=== PATIENT | female | born 1955 | race Caucasian/White ===

== ENCOUNTER → 2020-09-22 10:53 | Outpatient (CLI) | payer OTHER, SELFPAY ==
--- NOTE | 2020-09-22 | CA_ITS ---
APPROVED REPORT Exam: Pharmacologic Technologist: Melanie Osullivan, Ht: 5 ft 4 in Wt: 250 lbs BSA: 2.15 m2 HR: 98 bpm BP: 115/73 mmHg Medical History Medications: Metoprolol,,,,, Metformin,,,,, Losartan,,,,, Hydrochlorothiazide,,,,, Citalopram,,,,, ViCtoza,,,,, CetIRIizine,,,,, Stress Test Details Test: LEXISCAN HR Resting HR: 60 bpm Max Heart Rate (APMHR): 157.325582 bpm Max HR Achieved: 115 bpm Target HR (85% APMHR): 133.462456 bpm % of APMHR: 73.25 Recovery HR: 103 bpm BP Resting BP: 115/73 mmHg Max BP: 146/71 mmHg Recovery BP: 146.0/71.0 mmHg ECG Resting ECG: SR with RBBB Clinical Exercise duration: 04:01 min Highest Stage Achieved: Stress ECG Conclusion Lexiscan portion completed. Pt c/o shortness of breath during peak infusion. Symptoms: No CP, (+)SOB during peak infusion. Resolved in recovery. Arrhythmias/Ectopy: Occ PVC. ST-T Changes: greater than 1.5mm ST Depression vs. artifact. Conclusion: Images to follow. Test Summary REST 02:04 . . 60 . 115/ 73 . . Stage 1 . . . . . . . Myoview Injected Stage 1 01:00 . . 65 . . . . Stage 2 01:00 . . 34 . . . . Stage 3 01:00 . . 97 . 145/ 96 . . Stage 4 01:00 . . 95 . 136/ 79 . . Stage 4 01:01 . . 99 . 136/ 79 . Stop exercise at 04:01 RECOVERY 01:00 . . 90 . 145/ 79 . . RECOVERY 02:00 . . 91 . 127/ 81 . . RECOVERY 03:00 . . 85 . 127/ 81 . . RECOVERY 03:31 . . 82 . 146/ 71 . . Electronically signed by : Luisito Brady, 09/22/2020 19:31:50
--- NOTE | 2020-09-22 10:58 | NM_ITS ---
APPROVED REPORT Exam: Nuclear Stress Test Indication: Chest pain, SOB, Fatigue, HTN, DM, Family history Patient Location: Outpatient Stress Tech: Melanie Osullivan [place] Tech:Anat Garcia, ARRT, RT (R)(N) Ht: 5 ft 4 in Wt: 254 lbs Bra Size: 42D HR: 98 bpm BP: 115/73 mmHg BSA: 2.17 m2 BMI: 43.5 Procedure: Patient received a 0.4 mg of intravenous Lexiscan, resting heart rate 98 bpm, resting blood pressure 115/73 mmHg, with Lexiscan maximum heart rate achived was 113 bpm which is Less than 85 % of the maximum predicted heart rate and blood pressure was 145/96 mmHg. With Lexiscan, patient denied any complaint of chest pain. Electrocardiogram Resting electrocardiogram shows sinus rhythm low voltage QRS complexes, with Lexiscan there is less than 1.[address] segment depression noted from the baseline EKG. The EKG portion of the Lexiscan is nondiagnostic. Cardiac Stress and Resting SPECT Images: Cardiac Stress and Resting SPECT images were obtained using technetium 99m Myoview 32.6 mCi stress and 10.74 mCi at rest. Gated SPECT for analysis of segmental wall motion and calculation of the ejection fraction also done, prone images were also obtained. Cardiac stress and resting SPECT images show reversible ischemia involving the anterolateral wall, there is transient ischemic dilatation of the left ventricle is also seen. Computer derived ejection fraction is 56% with no regional wall motion abnormality, right ventricle is normal size and contractility. Conclusion: 1. The EKG portion of the Lexiscan is nondiagnostic. 2. Scintigraphic evidence of reversible ischemia involving the anterolateral wall, computer derived ejection fraction 56% with no regional wall motion abnormality, right ventricle is normal size and contractility, there is transient ischemic dilatation of the left ventricle seen. 3. Abnormal Lexiscan Myoview study. Electronically signed by : Luisito Brady, 09/22/2020 19:37:11
--- NOTE | 2020-09-22 12:53 | HMH.ITSHM ---
Current Home Medications as stated by this patient Kenya Sales or ambulatory service representative. []METOPROLOL HCTZ CETIRIZINE LOSARTAN METFORMIN CITALOPRAM VICTOZA
== END ==
PROVIDERS: PCP Family Medicine; Visit Provider Nurse Practitioner
DX: R07.9 Chest pain, unspecified (principal)
CPT/HCPCS: 78452; 93017; A9502; J2785

== ENCOUNTER → 2020-10-10 09:40 | Outpatient (CLI) | payer OTHER, SELFPAY | PROVIDERS: PCP Family Medicine; Visit Provider Nurse Practitioner | DX: R06.02 Shortness of breath (principal) | CPT/HCPCS: 94060; 94640; 94726; 94729 ==

== ENCOUNTER → 2020-11-08 10:32 | Outpatient (CLI) | payer OTHER, SELFPAY ==
[2020-11-08 11:05] LABS: Basophils # 0.1 K/mm3 (0-0.2); Basophils % 1.2 % (0.1-2.0); Eosinophils # 0.1 K/mm3 (0.0-0.4); Eosinophils % 1.6 % (0.1-12.0); Hematocrit 42.2 % (37.0-47.0); Hemoglobin 13.6 g/dL (12.2-16.2); Lymphocytes # 1.9 K/mm3 (0.7-4.5); Mean Corpuscular HGB Conc 32.1 g/dL (31.8-35.4); Mean Corpuscular Hemoglobin 30.4 pg (27.0-31.2); Mean Corpuscular Volume 94.5 fl (81-99); Mean Platelet Volume 7.9 fl (7.4-10.4); Monocytes # 0.6 K/mm3 (0.1-1.0); Monocytes % 7.8 % (1.7-9.3); Neutrophils # 5.1 K/mm3 (1.8-7.8); Neutrophils % 65.4 % (37.0-80.0); Platelet Count 462 K/mm3 (142-424); Red Blood Count 4.47 M/mm3 (4.20-5.40); White Blood Count 7.9 K/mm3 (4.8-10.8)
[2020-11-08 11:27] LABS: Chloride 103 mmol/L (98-107)
[2020-11-08 11:28] LABS: Potassium 5.3 mmoL/L (3.5-5.1); Sodium 143 mmol/L (136-145)
[2020-11-08 11:31] LABS: Anion Gap 17.3 mEq/L (5-15); Blood Urea Nitrogen 16 mg/dl (7-17); Calcium 10.1 mg/dl (8.4-10.2); Carbon Dioxide 28 mmol/L (22.0-30.0); Estimated Glomerular Filt Rate 63 ml/min (>60); GFR (African American) 77 ML/MIN (>60); Glucose 155 mg/dl (74-100)
== END ==
PROVIDERS: Visit Provider Urology
DX: Z01.812 Encounter for preprocedural laboratory examination (principal); Z20.822 Contact with and (suspected) exposure to COVID-19; R06.00 Dyspnea, unspecified; R00.2 Palpitations; R00.0 Tachycardia, unspecified; I20.9 Angina pectoris, unspecified; E78.5 Hyperlipidemia, unspecified; I10 Essential (primary) hypertension; R94.30 Abnormal result of cardiovascular function study, unspecified; R94.39 Abnormal result of other cardiovascular function study
CPT/HCPCS: 36415; 80048; 85025; U0003

== ENCOUNTER 2020-11-10 06:48 | Day surgery (SDC) | payer OTHER, SELFPAY ==
[2020-11-10] VITALS (11 sets, daily range): BP systolic 109–168; BP diastolic 64–94; PULSE 90–108; RESP 13–18; TEMP 36.7–36.9; O2SAT 92–99; BMI 45.1
--- NOTE | 2020-11-10 | IR_ITS ---
APPROVED REPORT Patient Location: Outpatient Outside Industrial Sales Representative: RODDY Santos RT (R) PROCEDURES Left heart catheterization Left ventriculogram Selective coronary angiogram Drug-eluting stent deployment to the ostial proximal LAD Drug-eluting stent deployment to the proximal circumflex artery INDICATION Angina pectoris class III-IV, High risk abnormal Myoview, Coronary artery disease Informed consent was obtained prior to the procedure. COMPLICATIONS NONE Estimated Blood Loss: LESS THAN 10 ML TECHNIQUE One percent lidocaine used to anesthetize the right anterior aspect of the wrist. The right radial artery was accessed via the Seldinger technique. A 6 Burmese sheath was placed in the right radial artery. 2.5 mg of verapamil, 800 mcg of nitroglycerin, 1mg Lidocaine and 5000 U Heparin were given through the arterial sheath. The trap catheter was also used to perform left heart catheterization, left ventriculogram and selective coronary angiogram. At the end the diagnostic angiogram therapeutic heparin was administered giving a therapeutic ACT and the JL 3 guide catheter was used to intubate the left main artery. Choice PT extra-support wire was placed distally in the LAD and a 3.5 x 15 mm resolute [place] stent was placed ostially in the LAD at 18 dmitriy reducing the stenosis to less than 10%. After achieving excellent angiographic results the wire was pulled back and easily passed into the circumflex artery. A 3 mm x 15 mm resolute [place] stent easily passed into the circumflex artery and was deployed at 20 dmitriy reducing the focal stenosis to 0%. Labetalol was given intra venously due to elevated blood pressure. 800 mcg of nitroglycerin was administered at the end of the case which demonstrated wide patency of the stents with excellent ROXIE-3 flow. After achieving excellent angiographic results the apparatus was removed the sheath was removed hemostasis was achieved using TR banding patient was transferred to the postop putting in stable condition ANGIOGRAPHIC RESULTS The left main artery Normal The left anterior descending artery Has an ostial proximal 70 to 80% stenosis with remaining vessel being widely patent and essentially normal The circumflex artery Is a nondominant yet still moderate to large circumflex artery and has a focal proximal 70 to 80% stenosis The right coronary artery Is a dominant vessel and has proximal 40% stenosis with mid vessel 30% luminal irregularities The MURPHY ventriculogram reveals Hyperdynamic 70% The left ventricular end-diastolic pressure Severely elevated at 35 to 40 mmHg IMPRESSION Severe two-vessel coronary disease as described above Successful stenting of the ostial proximal LAD severe disease reduced to 10% with 1 drug-eluting stent Successful stenting of the proximal circumflex artery severe disease reduced to 0% with 1 drug-eluting stent Hyperdynamic ventricle consistent with hypertensive heart disease and diastolic dysfunction Elevated LVEDP also consistent with advanced diastolic dysfunction likely from hypertensive heart disease PLAN 1. Brilinta 90 twice daily plus aspirin 81 mg daily for 1 year if patient can tolerate 2. LDL less than 55 to be achieved with high intensity statin 3. Cardiac rehabilitation 4. Avoidance of tobacco products 5. Recommend sleep study 6. Weight loss recommended 7. Patient has advanced diastolic dysfunction and should be treated with fluid restriction salt restriction and loop diuretics along with spironolactone 8. Beta-blockers and CAL inhibitors Electronically signed by : Alf Brooks, 11/10/2020 10:56:23
[2020-11-10 11:49] LABS: CATHL Activated Clotting Time 253 SEC (74-125)
[2020-11-10 11:50] LABS: CATHL Activated Clotting Time 248 SEC (74-125)
--- NOTE | 2020-11-10 14:13 | HMH.PHACLD ---
Addendum entered and electronically signed by Patricio Joe PharmD 11/10/20 14:17: CHANGING BRILINTA 90 MG BID TO PLAVIX 75 MG DAILY DUE TO SHORTNESS OF BREATH. Original Note: Kenya Sales has received discharge medication counseling on the following medications: PATIENT STARTED ON BRILINTA 90 MG BID, ASPIRIN 81 MG DAILY, AND ATORVASTATIN 40 MG HS. PATIENT IS CURRENTLY TAKING BISOPROLOL 10 MG DAILY AND MD INCREASED DOSE OF LOSARTAN TO 100 MG DAILY. MD STARTED PATIENT ON LASIX 40 MG DAILY AND SPIRONOLACTONE 50 MG DAILY.
== END 2020-11-10 14:30 | disposition home or self-care (01) ==
LOC: CATHLAB 06:50
PROVIDERS: PCP Family Medicine; Visit Provider Internal Medicine
DX: I25.110 Atherosclerotic heart disease of native coronary artery with unstable angina pectoris (principal); I11.9 Hypertensive heart disease without heart failure; E11.9 Type 2 diabetes mellitus without complications; E78.5 Hyperlipidemia, unspecified; Z79.899 Other long term (current) drug therapy; Z79.84 Long term (current) use of oral hypoglycemic drugs; Z79.01 Long term (current) use of anticoagulants
CPT/HCPCS: 85347; 92928; 93458; 99152; 99153; C1725; C1760; C1769; C1874; C1876; C9600; J1644; Q9967

== ENCOUNTER → 2020-11-18 16:13 | Outpatient (CLI) | payer OTHER, SELFPAY ==
[2020-11-18 18:47] LABS: Anion Gap 21.1 mEq/L (5-15); Blood Urea Nitrogen 19 mg/dl (7-17); Carbon Dioxide 27 mmol/L (22.0-30.0); Chloride 100 mmol/L (98-107); Estimated Glomerular Filt Rate 56 ml/min (>60); GFR (African American) 68 ML/MIN (>60); Glucose 141 mg/dl (74-100); Potassium 5.1 mmoL/L (3.5-5.1); Sodium 143 mmol/L (136-145)
== END ==
PROVIDERS: Nurse Practitioner Family; Visit Provider Urology
DX: R00.2 Palpitations (principal); R00.0 Tachycardia, unspecified; I25.10 Atherosclerotic heart disease of native coronary artery without angina pectoris; I10 Essential (primary) hypertension; E78.2 Mixed hyperlipidemia
CPT/HCPCS: 36415; 80048

== ENCOUNTER 2020-11-26 08:41 | Outpatient (RCR) | payer OTHER, SELFPAY | END 2021-02-18 10:34 | disposition home or self-care (01) | LOC: PT 08:41 | PROVIDERS: Visit Provider Internal Medicine | DX: I25.10 Atherosclerotic heart disease of native coronary artery without angina pectoris (principal); Z95.5 Presence of coronary angioplasty implant and graft ==

== ENCOUNTER → 2020-12-08 07:55 | Outpatient (CLI) | payer OTHER, SELFPAY ==
[2020-12-08 08:38] LABS: Chloride 99 mmol/L (98-107); Potassium 5.2 mmoL/L (3.5-5.1); Sodium 141 mmol/L (136-145)
[2020-12-08 08:41] LABS: Blood Urea Nitrogen 26 mg/dl (7-17); Estimated Glomerular Filt Rate 41 ml/min (>60); GFR (African American) 50 ML/MIN (>60)
[2020-12-08 08:42] LABS: Anion Gap 21.2 mEq/L (5-15); Calcium 9.5 mg/dl (8.4-10.2); Carbon Dioxide 26 mmol/L (22.0-30.0); Glucose 194 mg/dl (74-100)
== END ==
PROVIDERS: Urology; Visit Provider Nurse Practitioner Family
DX: R06.00 Dyspnea, unspecified (principal); R94.39 Abnormal result of other cardiovascular function study; I10 Essential (primary) hypertension; E78.5 Hyperlipidemia, unspecified
CPT/HCPCS: 36415; 80048

== ENCOUNTER → 2020-12-09 11:03 | Outpatient (CLI) | payer OTHER, SELFPAY ==
[2020-12-09 12:04] LABS: Anion Gap 20.7 mEq/L (5-15); Blood Urea Nitrogen 25 mg/dl (7-17); Calcium 10.2 mg/dl (8.4-10.2); Carbon Dioxide 28 mmol/L (22.0-30.0); Chloride 97 mmol/L (98-107); Estimated Glomerular Filt Rate 50 ml/min (>60); GFR (African American) 61 ML/MIN (>60); Glucose 231 mg/dl (74-100); Potassium 5.7 mmoL/L (3.5-5.1); Sodium 140 mmol/L (136-145)
== END ==
PROVIDERS: Visit Provider Urology
DX: E87.5 Hyperkalemia (principal)
CPT/HCPCS: 36415; 80048

== ENCOUNTER → 2020-12-13 12:33 | Outpatient (CLI) | payer OTHER, SELFPAY ==
[2020-12-13 14:05] LABS: Blood Urea Nitrogen 40 mg/dl (7-17); Carbon Dioxide 23 mmol/L (22.0-30.0); Chloride 97 mmol/L (98-107); Estimated Glomerular Filt Rate 30 ml/min (>60); GFR (African American) 37 ML/MIN (>60); Glucose 183 mg/dl (74-100); Sodium 141 mmol/L (136-145)
== END ==
PROVIDERS: Urology; Visit Provider Internal Medicine
DX: R06.00 Dyspnea, unspecified (principal); I20.9 Angina pectoris, unspecified; R00.0 Tachycardia, unspecified; I10 Essential (primary) hypertension; E78.5 Hyperlipidemia, unspecified; R94.31 Abnormal electrocardiogram [ECG] [EKG]; R94.39 Abnormal result of other cardiovascular function study; Z95.1 Presence of aortocoronary bypass graft
CPT/HCPCS: 36415; 80048

== ENCOUNTER → 2021-03-10 08:58 | Outpatient (CLI) | payer OTHER, SELFPAY ==
[2021-03-10 09:31] LABS: Basophils # 0.1 K/mm3 (0-0.2); Eosinophils # 0.1 K/mm3 (0.0-0.4); Hematocrit 41.2 % (37.0-47.0); Hemoglobin 13.3 g/dL (12.2-16.2); Lymphocytes # 1.5 K/mm3 (0.7-4.5); Lymphocytes % 22.2 % (10-50); Mean Corpuscular HGB Conc 32.3 g/dL (31.8-35.4); Mean Corpuscular Hemoglobin 30.3 pg (27.0-31.2); Mean Corpuscular Volume 93.7 fl (81-99); Monocytes # 0.5 K/mm3 (0.1-1.0); Monocytes % 6.9 % (1.7-9.3); Neutrophils # 4.6 K/mm3 (1.8-7.8); Neutrophils % 67.8 % (37.0-80.0); Platelet Count 520 K/mm3 (142-424); Red Cell Distribution Width 13.3 % (11.5-17.5); White Blood Count 6.8 K/mm3 (4.8-10.8)
[2021-03-10 10:11] LABS: Alanine Aminotransferase 43 U/L (12-78); Albumin Level 4.1 g/dl (3.5-5.0); Alkaline Phosphatase 94 U/L (38-126); Aspartate Amino Transferase 50 U/L (14-36); Bilirubin,Direct 0.2 mg/dl (0.0-0.4); Bilirubin,Indirect 0.2 mg/dL (0.0-0.9); Bilirubin,Total 0.4 mg/dl (0.2-1.3); Bilirubin,Unconjugated 0.1 mg/dL (0.0-1.1); Blood Urea Nitrogen 12 mg/dl (7-17); Calcium 10.6 mg/dl (8.4-10.2); Carbon Dioxide 31 mmol/L (22.0-30.0); Chloride 99 mmol/L (98-107); Chol/HDL Ratio 3.8 (1-3.5); Cholesterol 144 mg/dl (140-200); Estimated Glomerular Filt Rate 56 ml/min (>60); GFR (African American) 68 ML/MIN (>60); Glucose 171 mg/dl (74-100); HDL Cholesterol 38 mg/dl (40-60); Sodium 139 mmol/L (136-145); Total Protein,Serum 6.8 g/dl (6.3-8.2); Triglycerides 167 mg/dl (30-150); VLDL Cholesterol 33 mg/dL (0-40)
[2021-03-10 10:22] LABS: Direct LDL Cholesterol 90.96 mg/dL (100-129)
[2021-03-10 10:27] LABS: Free T4 (Free Thyroxine) 1.19 ng/dl (0.78-2.19)
[2021-03-10 12:40] LABS: Thyroid Stimulating Hormone 2.23 uIU/mL (0.465-4.68)
== END ==
PROVIDERS: Visit Provider Physician Assistant
DX: I25.10 Atherosclerotic heart disease of native coronary artery without angina pectoris (principal); I10 Essential (primary) hypertension; E78.5 Hyperlipidemia, unspecified; R94.31 Abnormal electrocardiogram [ECG] [EKG]; Z95.1 Presence of aortocoronary bypass graft
CPT/HCPCS: 36415; 80048; 80061; 80076; 84439; 84443; 85025

== ENCOUNTER → 2021-03-18 12:55 | Outpatient (CLI) | payer OTHER, SELFPAY | PROVIDERS: PCP Family Medicine; Visit Provider Physician Assistant | DX: R06.83 Snoring (principal); R40.0 Somnolence | CPT/HCPCS: 95806 ==

== ENCOUNTER → 2021-12-30 07:10 | Outpatient (CLI) | payer OTHER, SELFPAY ==
[2021-12-30 17:52] LABS: Basophils # 0.2 K/mm3 (0-0.2); Eosinophils # 0.2 K/mm3 (0.0-0.4); Eosinophils % 2.1 % (0.1-12.0); Hematocrit 42.1 % (37.0-47.0); Hemoglobin 12.9 g/dL (12.2-16.2); Lymphocytes # 1.6 K/mm3 (0.7-4.5); Lymphocytes % 21.9 % (10-50); Mean Corpuscular HGB Conc 30.7 g/dL (31.8-35.4); Mean Corpuscular Hemoglobin 29.3 pg (27.0-31.2); Mean Corpuscular Volume 95.4 fl (81-99); Mean Platelet Volume 9.7 fl (7.4-10.4); Monocytes # 0.5 K/mm3 (0.1-1.0); Monocytes % 6.2 % (1.7-9.3); Neutrophils # 5.1 K/mm3 (1.8-7.8); Neutrophils % 67.9 % (37.0-80.0); Platelet Count 635 K/mm3 (142-424); Red Blood Count 4.41 M/mm3 (4.20-5.40); Red Cell Distribution Width 13.9 % (11.5-17.5); White Blood Count 7.4 K/mm3 (4.8-10.8)
[2021-12-30 17:57] LABS: Alanine Aminotransferase 37 U/L (12-78); Albumin Level 3.7 g/dl (3.5-5.0); Albumin/Globulin Ratio 1.3 (1.1-1.8); Alkaline Phosphatase 131 U/L (38-126); Anion Gap 17.6 mEq/L (5-15); Aspartate Amino Transferase 39 U/L (14-36); Blood Urea Nitrogen 16 mg/dl (7-17); Carbon Dioxide 27 mmol/L (22.0-30.0); Chloride 97 mmol/L (98-107); Cholesterol 128 mg/dl (140-200); Estimated Glomerular Filt Rate 56 ml/min (>60); GFR (African American) 68 ML/MIN (>60); Globulin 2.9 g/dL (1.3-3.2); Glucose 180 mg/dl (74-100); HDL Cholesterol 32 mg/dl (40-60); Potassium 4.6 mmoL/L (3.5-5.1); Sodium 137 mmol/L (136-145); Total Protein,Serum 6.6 g/dl (6.3-8.2); Triglycerides 189 mg/dl (30-150); VLDL Cholesterol 38 mg/dL (0-40)
[2021-12-30 18:07] LABS: Direct LDL Cholesterol 76.42 mg/dL (100-129)
[2021-12-30 18:08] LABS: Bilirubin,Total 0.1 mg/dl (0.2-1.3)
[2021-12-30 18:14] LABS: 25-OH Vitamin D, Total 40.5 ng/mL (30-100)
[2021-12-30 18:27] LABS: Thyroid Stimulating Hormone 2.15 uIU/mL (0.465-4.68)
[2021-12-30 18:47] LABS: Vitamin B12 885 pg/mL (239-931)
== END ==
PROVIDERS: PCP Nurse Practitioner; Visit Provider Nurse Practitioner
DX: I25.10 Atherosclerotic heart disease of native coronary artery without angina pectoris (principal); I10 Essential (primary) hypertension; E53.8 Deficiency of other specified B group vitamins; E78.5 Hyperlipidemia, unspecified; E66.01 Morbid (severe) obesity due to excess calories; Z68.41 Body mass index [BMI] 40.0-44.9, adult
CPT/HCPCS: 80053; 80061; 82306; 82607; 83036; 84443; 85025

== ENCOUNTER → 2021-12-31 14:29 | Outpatient (CLI) | payer OTHER, SELFPAY | PROVIDERS: PCP Nurse Practitioner; Visit Provider Nurse Practitioner | DX: E11.9 Type 2 diabetes mellitus without complications (principal); Z79.84 Long term (current) use of oral hypoglycemic drugs | CPT/HCPCS: 83036 ==

== ENCOUNTER → 2022-01-11 10:26 | Outpatient (CLI) | payer OTHER, SELFPAY ==
--- NOTE | 2022-01-11 10:37 | XR_ITS ---
FINAL REPORT CLINICAL HISTORY: OBESITY, SHORTNESS OF BREATH, CHEST PAIN FINDINGS: Two views of the chest were obtained. The heart size and pulmonary vascularity are within normal limits. The mediastinum is normal. No acute pulmonary abnormality is identified. The lungs are hyperinflated consistent with COPD. There is no pneumothorax. The bony thorax is intact. IMPRESSION: Hyperinflation consistent with COPD. Reviewed, Interpreted and Dictated by Heladio Monaco III, MD Transcribed by Melita Evans Authenticated and [facility]
--- NOTE | 2022-01-11 10:53 | ECG_ITS ---
APPROVED REPORT Exam: Resting ECG HR:77 bpm ECG Measurements Heart Rate 77 AXES WA 145 P 51 QRSd 82 QRS 62 QT 349 T 59 QTc 381 Conclusion SINUS RHYTHM LOW QRS VOLTAGE IN PRECORDIAL LEADS [QRS DEFLECTION < 1.0 mV IN CHEST LEADS] Late R wave progression BORDERLINE ECG UNCONFIRMED REPORT Electronically signed by : Endy Aaron MD 01/11/2022 20:05:41
== END ==
PROVIDERS: PCP Nurse Practitioner; Visit Provider Physician Assistant
DX: E66.9 Obesity, unspecified (principal); Z68.41 Body mass index [BMI] 40.0-44.9, adult
CPT/HCPCS: 71046; 93005

== ENCOUNTER → 2022-02-25 08:55 | Outpatient (CLI) | payer MEDICARE, SELFPAY ==
[2022-02-25 19:08] LABS: Anion Gap 16.9 mEq/L (5-15); Blood Urea Nitrogen 14 mg/dl (7-17); Calcium 9.5 mg/dl (8.4-10.2); Carbon Dioxide 33 mmol/L (22.0-30.0); Chloride 96 mmol/L (98-107); Estimated Glomerular Filt Rate 45 ml/min (>60); GFR (African American) 55 ML/MIN (>60); Glucose 146 mg/dl (74-100); Potassium 4.9 mmoL/L (3.5-5.1); Sodium 141 mmol/L (136-145)
== END ==
PROVIDERS: PCP Nurse Practitioner; Visit Provider Nurse Practitioner
DX: E11.9 Type 2 diabetes mellitus without complications (principal); Z79.84 Long term (current) use of oral hypoglycemic drugs
CPT/HCPCS: 80048

== ENCOUNTER → 2022-05-10 14:10 | Outpatient (CLI) | payer MEDICARE, OTHER, SELFPAY ==
[2022-05-10 19:32] LABS: Basophils # 0.1 K/mm3 (0-0.2); Basophils % 0.9 % (0.1-2.0); Eosinophils # 0.1 K/mm3 (0.0-0.4); Eosinophils % 1.1 % (0.1-12.0); Hematocrit 42.8 % (37.0-47.0); Hemoglobin 13.8 g/dL (12.2-16.2); Lymphocytes # 1.9 K/mm3 (0.7-4.5); Mean Corpuscular HGB Conc 32.4 g/dL (31.8-35.4); Mean Corpuscular Hemoglobin 29.5 pg (27.0-31.2); Mean Corpuscular Volume 91.1 fl (81-99); Mean Platelet Volume 8.6 fl (7.4-10.4); Monocytes # 0.6 K/mm3 (0.1-1.0); Monocytes % 6.5 % (1.7-9.3); Neutrophils # 6.7 K/mm3 (1.8-7.8); Neutrophils % 71.4 % (37.0-80.0); Platelet Count 667 K/mm3 (142-424); Red Blood Count 4.69 M/mm3 (4.20-5.40); Red Cell Distribution Width 14.3 % (11.5-17.5); White Blood Count 9.4 K/mm3 (4.8-10.8)
[2022-05-10 19:34] LABS: Alanine Aminotransferase 26 U/L (12-78); Albumin Level 3.4 g/dl (3.5-5.0); Albumin/Globulin Ratio 1.3 (1.1-1.8); Alkaline Phosphatase 102 U/L (38-126); Anion Gap 13.7 mEq/L (5-15); Aspartate Amino Transferase 40 U/L (14-36); Bilirubin,Total 0.4 mg/dl (0.2-1.3); Blood Urea Nitrogen 16 mg/dl (7-17); Calcium 8.6 mg/dl (8.4-10.2); Carbon Dioxide 25 mmol/L (22.0-30.0); Chloride 103 mmol/L (98-107); Chol/HDL Ratio 2.2 (1-3.5); Cholesterol 98 mg/dl (140-200); Estimated Glomerular Filt Rate 27 ml/min (>60); GFR (African American) 32 ML/MIN (>60); Globulin 2.6 g/dL (1.3-3.2); Glucose 144 mg/dl (74-100); HDL Cholesterol 44 mg/dl (40-60); Sodium 139 mmol/L (136-145); Triglycerides 163 mg/dl (30-150); VLDL Cholesterol 33 mg/dL (0-40)
[2022-05-10 19:45] LABS: Direct LDL Cholesterol 46.88 mg/dL (100-129)
[2022-05-10 19:49] LABS: Potassium 2.7 mmoL/L (3.5-5.1)
[2022-05-10 19:51] LABS: 25-OH Vitamin D, Total 40.5 ng/mL (30-100)
[2022-05-10 20:04] LABS: Thyroid Stimulating Hormone 1.34 uIU/mL (0.465-4.68)
[2022-05-10 20:18] LABS: Hemoglobin A1C 5.9 % (4.0-6.0)
[2022-05-10 20:23] LABS: Vitamin B12 > 1000 pg/mL (239-931)
== END ==
PROVIDERS: PCP Nurse Practitioner; Visit Provider Nurse Practitioner
DX: R06.00 Dyspnea, unspecified; R42 Dizziness and giddiness; E11.9 Type 2 diabetes mellitus without complications; E55.9 Vitamin D deficiency, unspecified; Z79.84 Long term (current) use of oral hypoglycemic drugs
CPT/HCPCS: 80053; 80061; 82306; 82607; 83036; 84443; 85025

== ENCOUNTER → 2022-05-13 09:42 | Outpatient (CLI) | payer MEDICARE, OTHER, SELFPAY ==
[2022-05-13 20:02] LABS: Blood Urea Nitrogen 18 mg/dl (7-17); Calcium 8.2 mg/dl (8.4-10.2); Carbon Dioxide 25 mmol/L (22.0-30.0); Chloride 102 mmol/L (98-107); Estimated Glomerular Filt Rate 32 ml/min (>60); GFR (African American) 39 ML/MIN (>60); Glucose 99 mg/dl (74-100); Sodium 140 mmol/L (136-145)
== END ==
PROVIDERS: PCP Nurse Practitioner; Visit Provider Nurse Practitioner
DX: E11.9 Type 2 diabetes mellitus without complications (principal); E87.6 Hypokalemia; I10 Essential (primary) hypertension; Z79.84 Long term (current) use of oral hypoglycemic drugs
CPT/HCPCS: 80048

== ENCOUNTER 2022-05-17 15:58 | Emergency (ER) | payer MEDICARE, OTHER, SELFPAY ==
[2022-05-17 15:59] VITALS: BP 137/56; PULSE 68; RESP 17; TEMP 36.5; O2SAT 98; BMI 35.0
--- NOTE | 2022-05-17 16:02 | HMH.EDGENADL ---
Discharge Plan Disposition Patient Disposition: Home, Self-Care Condition: Good Prescriptions Prescriptions: No Action gabapentin 300 mg capsule 300 mg PO TID Label Comments: TAKE 1 CAPSULE BY MOUTH 3 TIMES A DAY FOR 7 DAYS. metformin 500 mg tablet extended release 24 hr 500 mg PO BID Qty: 90 1RF polyethylene glycol 3350 17 gram/dose powder 17 g PO DAILY Qty: 850 2RF docusate sodium 100 mg capsule 100 mg PO DAILY Qty: 30 0RF ondansetron 4 mg tablet,disintegrating 4 mg PO Q8H PRN (Reason: nausea and vomiting) Qty: 30 0RF bisoprolol fumarate 10 mg tablet 5 mg PO BID Qty: 180 3RF losartan 100 mg tablet 50 mg PO DAILY fluticasone propionate [Allergy Relief (fluticasone)] 50 mcg/actuation spray,suspension 1 spray INTRANASAL DAILY 90 Days Qty: 48 3RF Rx Instructions: administer into each nostril aspirin 81 mg tablet,delayed release (DR/EC) See Rx Instructions .ROUTE .COMPLEX Qty: 90 3RF Dose Instruction: TAKE ONE TABLET BY MOUTH EVERY MORNING Rx Instructions: TAKE ONE TABLET BY MOUTH EVERY MORNING albuterol sulfate [Ventolin HFA] 90 mcg/actuation HFA aerosol inhaler 2 puff INHALATION QID PRN (Reason: shortness of breath or wheezing) Qty: 6.7 5RF furosemide 80 mg tablet 40 mg PO .M, W, F Qty: 30 5RF Rx Instructions: 0.5 tablet M, W, F cetirizine 10 mg tablet 10 mg PO DAILY Qty: 30 2RF duloxetine 60 mg capsule,delayed release(DR/EC) 60 mg PO DAILY Qty: 30 0RF clopidogrel 75 mg tablet 75 mg PO DAILY Qty: 90 3RF atorvastatin 40 mg tablet 20 mg PO HS Qty: 30 5RF potassium chloride 20 mEq tablet extended release 20 meq PO DAILY Qty: 30 2RF cyanocobalamin (vitamin B-12) 1,000 mcg tablet 1,000 mcg PO DAILY Qty: 30 3RF Referrals Follow up/Referrals: Serjio Vera MD [Primary Care Provider] - See instructions Activity Restrictions/Add. Instructions Additional Instructions/Restrictions: You have a spontaneous lateral thigh soft tissue hematomas. Bedside ultrasound demonstrated fluid in the soft tissues alone outside of any vasculature. There is no evidence of any DVT or any intravascular involvement. This is nothing to be concerned about. Please follow-up with your primary care doctor as needed return to the emergency department for any other concerns. Clinical Impressions Clinical Impression: Hematoma of left thigh Discharge ED Provider: Boris Richard General Adult HPI General Chief complaint: Extremity Problem,Nontraumatic Stated complaint: left leg pain/swelling Time Seen by Provider: 05/17/22 16:03 History of Present Illness HPI narrative: Patient is a 67-year-old female who presents with left lateral leg pain and swelling. States that she was not concerned about this however had a few people over her house who noted some ecchymosis on the lateral aspect of her left thigh and they were concerned that she may have a blood clot. Patient has no proximal or medial leg swelling or pain there is no circumferential swelling throughout the leg. Her only discomfort are 2 small ecchymotic areas on the left lateral aspect of her thigh. She denies any trauma. She does have other areas on her body where she has had some spontaneous ecchymosis. She is on aspirin but no other anticoagulants. Pain is mild. Related Data Home Medications Medication Instructions Recorded Confirmed gabapentin 300 mg capsule 300 mg PO TID 03/25/22 05/13/22 losartan 100 mg tablet 50 mg PO DAILY 05/13/22 05/13/22 Previous Rx's Medication Instructions Recorded fluticasone propionate 50 1 spray intranasal DAILY 90 days 10/22/21 mcg/actuation nasal #48 grams spray,suspension (Allergy Relief (fluticasone)) albuterol sulfate 90 mcg/actuation 2 puff inhalation QID PRN 01/27/22 aerosol inhaler (Ventolin HFA) shortness of breath or wheezing #6.7 grams aspirin 81 mg tablet,delayed See Rx Instructions .Route
--- NOTE | 2022-05-17 16:06 | PC.NURSE ---
1603 DR CHAPMAN AT BEDSIDE
[2022-05-17 16:23] VITALS: BP 137/56; PULSE 73; RESP 18; TEMP 36.6
== END 2022-05-17 16:26 | disposition home or self-care (01) ==
LOC: ER 16:21
PROVIDERS: Emergency Provider Student in an Organized Health Care Education/Training Program; PCP Family Medicine
DX: S70.12XA Contusion of left thigh, initial encounter (principal); X58.XXXA Exposure to other specified factors, initial encounter; Z86.79 Personal history of other diseases of the circulatory system; I25.10 Atherosclerotic heart disease of native coronary artery without angina pectoris; I10 Essential (primary) hypertension; E11.9 Type 2 diabetes mellitus without complications; E78.5 Hyperlipidemia, unspecified; Z98.84 Bariatric surgery status; Z95.828 Presence of other vascular implants and grafts; Z80.9 Family history of malignant neoplasm, unspecified; Z82.49 Family history of ischemic heart disease and other diseases of the circulatory system; Z87.891 Personal history of nicotine dependence
CPT/HCPCS: 99284

== ENCOUNTER → 2022-05-27 21:00 | Outpatient (CLI) | payer MEDICARE, OTHER, SELFPAY ==
[2022-05-27 19:35] LABS: Basophils # 0.1 K/mm3 (0-0.2); Basophils % 1.1 % (0.1-2.0); Eosinophils # 0.1 K/mm3 (0.0-0.4); Eosinophils % 2.2 % (0.1-12.0); Hematocrit 42.2 % (37.0-47.0); Hemoglobin 12.8 g/dL (12.2-16.2); Lymphocytes # 1.9 K/mm3 (0.7-4.5); Lymphocytes % 31.4 % (10-50); Mean Corpuscular HGB Conc 30.4 g/dL (31.8-35.4); Mean Corpuscular Volume 95.3 fl (81-99); Mean Platelet Volume 8.9 fl (7.4-10.4); Monocytes # 0.5 K/mm3 (0.1-1.0); Monocytes % 7.6 % (1.7-9.3); Neutrophils # 3.5 K/mm3 (1.8-7.8); Neutrophils % 57.7 % (37.0-80.0); Platelet Count 550 K/mm3 (142-424); Red Blood Count 4.43 M/mm3 (4.20-5.40); Red Cell Distribution Width 14.5 % (11.5-17.5)
[2022-05-27 20:10] LABS: Alanine Aminotransferase 24 U/L (12-78); Albumin/Globulin Ratio 1.3 (1.1-1.8); Alkaline Phosphatase 101 U/L (38-126); Anion Gap 13.9 mEq/L (5-15); Aspartate Amino Transferase 38 U/L (14-36); Bilirubin,Total 0.4 mg/dl (0.2-1.3); Blood Urea Nitrogen 9 mg/dl (7-17); Carbon Dioxide 26 mmol/L (22.0-30.0); Chloride 103 mmol/L (98-107); Estimated Glomerular Filt Rate 50 ml/min (>60); GFR (African American) 60 ML/MIN (>60); Globulin 2.3 g/dL (1.3-3.2); Glucose 122 mg/dl (74-100); Sodium 140 mmol/L (136-145); Total Protein,Serum 5.3 g/dl (6.3-8.2)
[2022-05-27 20:45] LABS: Potassium 2.9 mmoL/L (3.5-5.1)
== END ==
PROVIDERS: PCP Nurse Practitioner; Visit Provider Nurse Practitioner
DX: E11.9 Type 2 diabetes mellitus without complications (principal); Z79.84 Long term (current) use of oral hypoglycemic drugs
CPT/HCPCS: 80053; 85025

== ENCOUNTER → 2022-06-09 09:30 | Outpatient (CLI) | payer MEDICARE, OTHER, SELFPAY ==
[2022-06-09 19:04] LABS: Anion Gap 12.1 mEq/L (5-15); Blood Urea Nitrogen 12 mg/dl (7-17); Calcium 8.7 mg/dl (8.4-10.2); Carbon Dioxide 25 mmol/L (22.0-30.0); Chloride 104 mmol/L (98-107); Estimated Glomerular Filt Rate 41 ml/min (>60); GFR (African American) 50 ML/MIN (>60); Glucose 120 mg/dl (74-100); Potassium 4.1 mmoL/L (3.5-5.1); Sodium 137 mmol/L (136-145)
== END ==
PROVIDERS: PCP Nurse Practitioner; Visit Provider Nurse Practitioner
DX: E87.6 Hypokalemia (principal)
CPT/HCPCS: 80048

== ENCOUNTER → 2022-06-21 11:00 | Outpatient (CLI) | payer MEDICARE, OTHER, SELFPAY ==
[2022-06-24 19:28] LABS: Alanine Aminotransferase 25 U/L (12-78); Albumin Level 3.1 g/dl (3.5-5.0); Albumin/Globulin Ratio 1.2 (1.1-1.8); Alkaline Phosphatase 107 U/L (38-126); Anion Gap 14.5 mEq/L (5-15); Aspartate Amino Transferase 37 U/L (14-36); Bilirubin,Total 0.4 mg/dl (0.2-1.3); Blood Urea Nitrogen 21 mg/dl (7-17); Calcium 8.4 mg/dl (8.4-10.2); Carbon Dioxide 20 mmol/L (22.0-30.0); Chloride 103 mmol/L (98-107); Chol/HDL Ratio 2.2 (1-3.5); Cholesterol 92 mg/dl (140-200); Estimated Glomerular Filt Rate 32 ml/min (>60); GFR (African American) 39 ML/MIN (>60); Globulin 2.5 g/dL (1.3-3.2); Glucose 105 mg/dl (74-100); HDL Cholesterol 41 mg/dl (40-60); Potassium 4.5 mmoL/L (3.5-5.1); Sodium 133 mmol/L (136-145); Total Protein,Serum 5.6 g/dl (6.3-8.2); Triglycerides 147 mg/dl (30-150); VLDL Cholesterol 29 mg/dL (0-40)
[2022-06-24 19:39] LABS: Direct LDL Cholesterol 41.95 mg/dL (100-129)
[2022-06-24 19:42] LABS: 25-OH Vitamin D, Total 45.9 ng/mL (30-100)
[2022-06-24 19:58] LABS: Hemoglobin A1C 5.4 % (4.0-6.0)
[2022-06-24 20:02] LABS: Thyroid Stimulating Hormone 3.98 uIU/mL (0.465-4.68)
[2022-06-24 20:33] LABS: Creatinine,Urine Random 393 mg/dL (Not Estab.); Microalbumin/Creatinine Ratio 5.9; Vitamin B12 > 1000 pg/mL (239-931)
== END ==
PROVIDERS: PCP Nurse Practitioner; Visit Provider Nurse Practitioner
DX: E11.9 Type 2 diabetes mellitus without complications (principal); E53.8 Deficiency of other specified B group vitamins; E55.9 Vitamin D deficiency, unspecified; E66.9 Obesity, unspecified; E78.5 Hyperlipidemia, unspecified; I10 Essential (primary) hypertension; Z98.84 Bariatric surgery status; R30.0 Dysuria; Z68.33 Body mass index [BMI] 33.0-33.9, adult; Z79.84 Long term (current) use of oral hypoglycemic drugs; B96.29 Other Escherichia coli [E. coli] as the cause of diseases classified elsewhere
CPT/HCPCS: 80053; 80061; 82043; 82306; 82570; 82607; 83036; 84443; 87086; 87088; 87186

== ENCOUNTER → 2022-07-29 23:24 | Outpatient (CLI) | payer MEDICARE, OTHER, SELFPAY ==
[2022-07-29 17:52] LABS: Hemoglobin A1C 5.5 % (4.0-6.0)
[2022-07-29 18:15] LABS: Chloride 109 mmol/L (98-107); Potassium 3.6 mmoL/L (3.5-5.1); Sodium 138 mmol/L (136-145)
[2022-07-29 18:17] LABS: Alanine Aminotransferase 25 U/L (12-78); Aspartate Amino Transferase 37 U/L (14-36); Blood Urea Nitrogen 13 mg/dl (7-17); Estimated Glomerular Filt Rate 50 ml/min (>60); GFR (African American) 60 ML/MIN (>60)
[2022-07-29 18:18] LABS: Albumin Level 2.5 g/dl (3.5-5.0); Alkaline Phosphatase 105 U/L (38-126); Anion Gap 10.6 mEq/L (5-15); Bilirubin,Total 0.3 mg/dl (0.2-1.3); Calcium 7.9 mg/dl (8.4-10.2); Carbon Dioxide 22 mmol/L (22.0-30.0); Globulin 2.5 g/dL (1.3-3.2); Glucose 99 mg/dl (74-100)
== END ==
PROVIDERS: PCP Nurse Practitioner; Visit Provider Nurse Practitioner
DX: E11.9 Type 2 diabetes mellitus without complications (principal); E66.9 Obesity, unspecified; Z68.32 Body mass index [BMI] 32.0-32.9, adult; Z79.84 Long term (current) use of oral hypoglycemic drugs
CPT/HCPCS: 80053; 83036

== ENCOUNTER → 2022-08-26 23:08 | Outpatient (CLI) | payer MEDICARE, OTHER, SELFPAY ==
[2022-08-27 09:25] LABS: Occult Blood,Stool Negative (Negative)
== END ==
PROVIDERS: PCP Nurse Practitioner; Visit Provider Nurse Practitioner
DX: K92.1 Melena (principal)
CPT/HCPCS: 82272; G0328

== ENCOUNTER → 2022-08-27 08:30 | Outpatient (CLI) | payer MEDICARE, OTHER, SELFPAY ==
[2022-08-27 18:30] LABS: Basophils # 0.1 K/mm3 (0-0.2); Basophils % 0.9 % (0.1-2.0); Eosinophils # 0.2 K/mm3 (0.0-0.4); Eosinophils % 3.5 % (0.1-12.0); Hematocrit 38.4 % (37.0-47.0); Hemoglobin 11.7 g/dL (12.2-16.2); Lymphocytes # 2.3 K/mm3 (0.7-4.5); Lymphocytes % 40.1 % (10-50); Mean Corpuscular HGB Conc 30.4 g/dL (31.8-35.4); Mean Corpuscular Hemoglobin 30.2 pg (27.0-31.2); Mean Corpuscular Volume 99.3 fl (81-99); Mean Platelet Volume 8.9 fl (7.4-10.4); Monocytes # 0.5 K/mm3 (0.1-1.0); Monocytes % 8.6 % (1.7-9.3); Neutrophils # 2.7 K/mm3 (1.8-7.8); Neutrophils % 46.9 % (37.0-80.0); Platelet Count 739 K/mm3 (142-424); Red Blood Count 3.86 M/mm3 (4.20-5.40); Red Cell Distribution Width 14.6 % (11.5-17.5); White Blood Count 5.8 K/mm3 (4.8-10.8)
[2022-08-27 18:40] LABS: Chloride 102 mmol/L (98-107); Potassium 4.1 mmoL/L (3.5-5.1); Sodium 140 mmol/L (136-145)
[2022-08-27 18:43] LABS: Anion Gap 15.1 mEq/L (5-15); Blood Urea Nitrogen 12 mg/dl (7-17); Carbon Dioxide 27 mmol/L (22.0-30.0); Estimated Glomerular Filt Rate 63 ml/min (>60); GFR (African American) 76 ML/MIN (>60)
[2022-08-27 18:44] LABS: Calcium 8.6 mg/dl (8.4-10.2); Glucose 87 mg/dl (74-100)
== END ==
PROVIDERS: PCP Nurse Practitioner; Visit Provider Nurse Practitioner
DX: K92.1 Melena (principal); R30.0 Dysuria; E11.9 Type 2 diabetes mellitus without complications; B96.89 Other specified bacterial agents as the cause of diseases classified elsewhere
CPT/HCPCS: 80048; 85025; 87086; 87088; 87186

== ENCOUNTER → 2022-09-23 09:15 | Outpatient (CLI) | payer MEDICARE, OTHER, SELFPAY ==
[2022-09-23 18:59] LABS: Hemoglobin A1C 5.3 % (4.0-6.0)
[2022-09-23 19:03] LABS: Chloride 108 mmol/L (98-107); Sodium 140 mmol/L (136-145)
[2022-09-23 19:04] LABS: Potassium 3.9 mmoL/L (3.5-5.1)
[2022-09-23 19:06] LABS: Alanine Aminotransferase 42 U/L (12-78); Alkaline Phosphatase 190 U/L (38-126); Anion Gap 11.9 mEq/L (5-15); Aspartate Amino Transferase 49 U/L (14-36); Blood Urea Nitrogen 11 mg/dl (7-17); Carbon Dioxide 24 mmol/L (22.0-30.0); Cholesterol 103 mg/dl (140-200); Estimated Glomerular Filt Rate 72 ml/min (>60); GFR (African American) 87 ML/MIN (>60); Triglycerides 116 mg/dl (30-150); VLDL Cholesterol 23 mg/dL (0-40)
[2022-09-23 19:07] LABS: Albumin Level 3.2 g/dl (3.5-5.0); Albumin/Globulin Ratio 1.2 (1.1-1.8); Calcium 8.9 mg/dl (8.4-10.2); Chol/HDL Ratio 2.6 (1-3.5); Globulin 2.6 g/dL (1.3-3.2); Glucose 100 mg/dl (74-100); HDL Cholesterol 39 mg/dl (40-60); Total Protein,Serum 5.8 g/dl (6.3-8.2)
[2022-09-23 19:11] LABS: Bilirubin,Total 0.1 mg/dl (0.2-1.3)
[2022-09-23 19:18] LABS: Direct LDL Cholesterol 49.93 mg/dL (100-129)
== END ==
PROVIDERS: PCP Nurse Practitioner; Visit Provider Nurse Practitioner
DX: E11.9 Type 2 diabetes mellitus without complications (principal); I10 Essential (primary) hypertension
CPT/HCPCS: 80053; 80061; 83036

== ENCOUNTER → 2022-11-18 23:11 | Outpatient (CLI) | payer MEDICARE, MEDICAID, SELFPAY ==
[2022-11-18 19:02] LABS: Basophils # 0.1 K/mm3 (0-0.2); Basophils % 0.9 % (0.1-2.0); Eosinophils # 0.1 K/mm3 (0.0-0.4); Eosinophils % 1.8 % (0.1-12.0); Hematocrit 39.2 % (37.0-47.0); Hemoglobin 12.3 g/dL (12.2-16.2); Lymphocytes # 1.6 K/mm3 (0.7-4.5); Lymphocytes % 22.9 % (10-50); Mean Corpuscular HGB Conc 31.3 g/dL (31.8-35.4); Mean Corpuscular Hemoglobin 28.6 pg (27.0-31.2); Mean Corpuscular Volume 91.2 fl (81-99); Mean Platelet Volume 10.3 fl (7.4-10.4); Monocytes # 0.5 K/mm3 (0.1-1.0); Monocytes % 7.1 % (1.7-9.3); Neutrophils # 4.7 K/mm3 (1.8-7.8); Neutrophils % 67.2 % (37.0-80.0); Platelet Count 474 K/mm3 (142-424); Red Blood Count 4.29 M/mm3 (4.20-5.40); Red Cell Distribution Width 12.8 % (11.5-17.5)
[2022-11-18 19:13] LABS: Alanine Aminotransferase 16 U/L (12-78); Albumin Level 3.2 g/dl (3.5-5.0); Albumin/Globulin Ratio 1.1 (1.1-1.8); Alkaline Phosphatase 162 U/L (38-126); Aspartate Amino Transferase 26 U/L (14-36); Bilirubin,Total 0.3 mg/dl (0.2-1.3); Blood Urea Nitrogen 18 mg/dl (7-17); Calcium 8.8 mg/dl (8.4-10.2); Carbon Dioxide 31 mmol/L (22.0-30.0); Chloride 105 mmol/L (98-107); Chol/HDL Ratio 2.8 (1-3.5); Cholesterol 95 mg/dl (140-200); Estimated Glomerular Filt Rate 63 ml/min (>60); GFR (African American) 76 ML/MIN (>60); Globulin 2.8 g/dL (1.3-3.2); Glucose 104 mg/dl (74-100); HDL Cholesterol 34 mg/dl (40-60); Sodium 143 mmol/L (136-145); Triglycerides 110 mg/dl (30-150); VLDL Cholesterol 22 mg/dL (0-40)
[2022-11-18 19:28] LABS: 25-OH Vitamin D, Total 37.7 ng/mL (30-100)
[2022-11-18 19:32] LABS: Direct LDL Cholesterol 47.35 mg/dL (100-129)
[2022-11-18 19:39] LABS: Thyroid Stimulating Hormone 1.16 uIU/mL (0.465-4.68)
[2022-11-18 20:15] LABS: Vitamin B12 > 1000 pg/mL (239-931)
[2022-11-18 20:16] LABS: Hemoglobin A1C 5.4 % (4.0-6.0)
[2022-11-19 19:45] LABS: Creatinine,Urine Random 50 mg/dL (Not Estab.)
[2022-11-19 19:51] LABS: Microalbumin < 6.000 mg/L (0-16.7)
== END ==
PROVIDERS: PCP Nurse Practitioner; Visit Provider Nurse Practitioner
DX: E11.9 Type 2 diabetes mellitus without complications (principal); E53.8 Deficiency of other specified B group vitamins; E55.9 Vitamin D deficiency, unspecified; E78.5 Hyperlipidemia, unspecified; I10 Essential (primary) hypertension; Z98.84 Bariatric surgery status; R06.00 Dyspnea, unspecified
CPT/HCPCS: 80053; 80061; 82043; 82306; 82570; 82607; 83036; 84443; 85025

== ENCOUNTER → 2022-12-20 23:52 | Outpatient (CLI) | payer MEDICARE, MEDICAID, SELFPAY ==
[2022-12-20 19:19] LABS: Chloride 104 mmol/L (98-107); Potassium 5.8 mmoL/L (3.5-5.1); Sodium 139 mmol/L (136-145)
[2022-12-20 19:22] LABS: Anion Gap 15.8 mEq/L (5-15); Blood Urea Nitrogen 23 mg/dl (7-17); Calcium 9.6 mg/dl (8.4-10.2); Carbon Dioxide 25 mmol/L (22.0-30.0); Estimated Glomerular Filt Rate 63 ml/min (>60); GFR (African American) 76 ML/MIN (>60); Glucose 85 mg/dl (74-100)
== END ==
PROVIDERS: PCP Nurse Practitioner; Visit Provider Nurse Practitioner
DX: E87.6 Hypokalemia (principal)
CPT/HCPCS: 80048

== ENCOUNTER → 2023-01-10 23:34 | Outpatient (CLI) | payer MEDICARE, MEDICAID, SELFPAY ==
[2023-01-10 19:44] LABS: Blood Urea Nitrogen 16 mg/dl (7-17); Calcium 8.8 mg/dl (8.4-10.2); Carbon Dioxide 27 mmol/L (22.0-30.0); Chloride 106 mmol/L (98-107); Estimated Glomerular Filt Rate 72 ml/min (>60); GFR (African American) 87 ML/MIN (>60); Glucose 100 mg/dl (74-100); Sodium 140 mmol/L (136-145)
== END ==
PROVIDERS: PCP Nurse Practitioner; Visit Provider Nurse Practitioner
DX: E87.5 Hyperkalemia (principal)
CPT/HCPCS: 80048

== ENCOUNTER → 2023-03-23 07:09 | Outpatient (CLI) | payer MEDICARE, MEDICAID, SELFPAY ==
[2023-03-23 18:13] LABS: Coronavirus 19, PCR Not Detected (NotDetected); Influenza A, PCR Not Detected (NotDetected); Influenza B, PCR Not Detected (NotDetected)
[2023-03-23 18:53] LABS: Basophils % 0.9 % (0.1-2.0); Eosinophils # 0.1 K/mm3 (0.0-0.4); Eosinophils % 2.5 % (0.1-12.0); Hematocrit 40.7 % (37.0-47.0); Hemoglobin 13.3 g/dL (12.2-16.2); Lymphocytes # 1.4 K/mm3 (0.7-4.5); Lymphocytes % 27.9 % (10-50); Mean Corpuscular HGB Conc 32.7 g/dL (31.8-35.4); Mean Corpuscular Hemoglobin 29.8 pg (27.0-31.2); Mean Corpuscular Volume 90.9 fl (81-99); Mean Platelet Volume 9.1 fl (7.4-10.4); Monocytes # 0.4 K/mm3 (0.1-1.0); Neutrophils # 3.1 K/mm3 (1.8-7.8); Neutrophils % 60.7 % (37.0-80.0); Platelet Count 353 K/mm3 (142-424); Red Blood Count 4.47 M/mm3 (4.20-5.40)
[2023-03-23 20:33] LABS: Alanine Aminotransferase 54 U/L (12-78); Albumin Level 3.5 g/dl (3.5-5.0); Albumin/Globulin Ratio 1.3 (1.1-1.8); Alkaline Phosphatase 150 U/L (38-126); Anion Gap 6.4 mEq/L (5-15); Aspartate Amino Transferase 49 U/L (14-36); Bilirubin,Total 0.3 mg/dl (0.2-1.3); Blood Urea Nitrogen 19 mg/dl (7-17); Calcium 8.4 mg/dl (8.4-10.2); Carbon Dioxide 28 mmol/L (22.0-30.0); Chloride 104 mmol/L (98-107); Estimated Glomerular Filt Rate 72 ml/min (>60); GFR (African American) 87 ML/MIN (>60); Globulin 2.8 g/dL (1.3-3.2); Glucose 106 mg/dl (74-100); Potassium 4.4 mmoL/L (3.5-5.1); Sodium 134 mmol/L (136-145); Total Protein,Serum 6.3 g/dl (6.3-8.2)
[2023-03-23 23:20] LABS: Hemoglobin A1C 5.6 % (4.0-6.0)
== END ==
PROVIDERS: PCP Nurse Practitioner; Visit Provider Nurse Practitioner
DX: E11.9 Type 2 diabetes mellitus without complications (principal); J06.9 Acute upper respiratory infection, unspecified; Z79.84 Long term (current) use of oral hypoglycemic drugs
CPT/HCPCS: 80053; 83036; 85025; 87636

== ENCOUNTER 2023-05-09 20:46 | Outpatient (CLI) | payer MEDICARE, MEDICAID, SELFPAY ==
[2023-05-09 20:08] LABS: Alanine Aminotransferase 24 U/L (12-78); Albumin Level 3.5 g/dl (3.5-5.0); Albumin/Globulin Ratio 1.3 (1.1-1.8); Alkaline Phosphatase 141 U/L (38-126); Anion Gap 11.9 mEq/L (5-15); Aspartate Amino Transferase 29 U/L (14-36); Bilirubin,Total 0.2 mg/dl (0.2-1.3); Blood Urea Nitrogen 17 mg/dl (7-17); Calcium 8.9 mg/dl (8.4-10.2); Carbon Dioxide 28 mmol/L (22.0-30.0); Chloride 102 mmol/L (98-107); Chol/HDL Ratio 3.3 (1-3.5); Cholesterol 137 mg/dl (140-200); Estimated Glomerular Filt Rate 63 ml/min (>60); GFR (African American) 76 ML/MIN (>60); Globulin 2.7 g/dL (1.3-3.2); Glucose 100 mg/dl (74-100); HDL Cholesterol 42 mg/dl (40-60); Potassium 3.9 mmoL/L (3.5-5.1); Sodium 138 mmol/L (136-145); Total Protein,Serum 6.2 g/dl (6.3-8.2); Triglycerides 131 mg/dl (30-150); VLDL Cholesterol 26 mg/dL (0-40)
[2023-05-09 20:19] LABS: Direct LDL Cholesterol 70.03 mg/dL (100-129)
[2023-05-09 20:29] LABS: 25-OH Vitamin D, Total 31.8 ng/mL (30-100)
[2023-05-09 20:39] LABS: Thyroid Stimulating Hormone 0.83 uIU/mL (0.465-4.68)
[2023-05-09 21:05] LABS: Vitamin B12 > 1000 pg/mL (239-931)
[2023-05-10 00:07] LABS: Creatinine,Urine Random 8 mg/dL (Not Estab.)
[2023-05-10 00:13] LABS: Microalbumin < 6.000 mg/L (0-16.7)
[2023-05-10 00:49] LABS: Hemoglobin A1C 5.7 % (4.0-6.0)
== END 2023-05-09 23:59 ==
LOC: LAB.DROPOF 20:49
PROVIDERS: PCP Nurse Practitioner; Visit Provider Nurse Practitioner
DX: E11.9 Type 2 diabetes mellitus without complications (principal); E53.8 Deficiency of other specified B group vitamins; E55.9 Vitamin D deficiency, unspecified; E66.9 Obesity, unspecified; E78.5 Hyperlipidemia, unspecified; I10 Essential (primary) hypertension; Z68.31 Body mass index [BMI] 31.0-31.9, adult; Z79.84 Long term (current) use of oral hypoglycemic drugs
CPT/HCPCS: 80053; 80061; 82043; 82306; 82570; 82607; 83036; 84443

== ENCOUNTER 2023-06-02 18:48 | Outpatient (CLI) | payer MEDICARE, MEDICAID, SELFPAY ==
[2023-06-02 18:20] LABS: Adenovirus,PCR Not Detected (NotDetected); Coronavirus 229E Not Detected (NotDetected); Coronavirus NL63 Not Detected (NotDetected); Coronavirus OC43 Not Detected (NotDetected); Coronovirus HKU1,PCR Not Detected (NotDetected); Human Metapneumovirus Not Detected (NotDetected); Influenza A, PCR Not Detected (NotDetected); Influenza AH1, 2009 Not Detected (NotDetected); Influenza AH1, PCR Not Detected (NotDetected); Influenza AH3,PCR Not Detected (NotDetected); Influenza B, PCR Not Detected (NotDetected); Parainfluenza 1, PCR Not Detected (NotDetected); Parainfluenza 2, PCR Not Detected (NotDetected); Parainfluenza 3, PCR Not Detected (NotDetected); Parainfluenza 4, PCR Not Detected (NotDetected); Respiratory Syncytial Virus Not Detected (NotDetected); Rhinovirus/Enterovirus Not Detected (NotDetected)
[2023-06-02 18:25] LABS: Basophils % 0.7 % (0.1-2.0); Eosinophils # 0.1 K/mm3 (0.0-0.4); Eosinophils % 1.8 % (0.1-12.0); Hematocrit 41.5 % (37.0-47.0); Hemoglobin 13.2 g/dL (12.2-16.2); Lymphocytes # 1.9 K/mm3 (0.7-4.5); Lymphocytes % 32.8 % (10-50); Mean Corpuscular HGB Conc 31.7 g/dL (31.8-35.4); Mean Corpuscular Hemoglobin 30.1 pg (27.0-31.2); Mean Corpuscular Volume 94.8 fl (81-99); Mean Platelet Volume 8.4 fl (7.4-10.4); Monocytes # 0.5 K/mm3 (0.1-1.0); Monocytes % 8.5 % (1.7-9.3); Neutrophils # 3.3 K/mm3 (1.8-7.8); Neutrophils % 56.2 % (37.0-80.0); Platelet Count 464 K/mm3 (142-424); Red Blood Count 4.38 M/mm3 (4.20-5.40); Red Cell Distribution Width 13.6 % (11.5-17.5); White Blood Count 5.9 K/mm3 (4.8-10.8)
[2023-06-02 21:45] LABS: Coronavirus 19, PCR Detected (NotDetected)
== END 2023-06-02 23:59 ==
LOC: LAB.DROPOF 18:48
PROVIDERS: PCP Nurse Practitioner; Visit Provider Nurse Practitioner
DX: R06.00 Dyspnea, unspecified; U07.1 COVID-19; H92.03 Otalgia, bilateral; R05.8 Other specified cough; R09.3 Abnormal sputum
CPT/HCPCS: 85025; 87632; 87635

== ENCOUNTER 2023-07-04 19:27 | Outpatient (CLI) | payer MEDICARE, MEDICAID, SELFPAY ==
[2023-07-04 18:56] LABS: Adenovirus,PCR Not Detected (NotDetected); Coronavirus 19, PCR Not Detected (NotDetected); Coronavirus 229E Not Detected (NotDetected); Coronavirus NL63 Not Detected (NotDetected); Coronavirus OC43 Not Detected (NotDetected); Coronovirus HKU1,PCR Not Detected (NotDetected); Human Metapneumovirus Not Detected (NotDetected); Influenza A, PCR Not Detected (NotDetected); Influenza AH1, 2009 Not Detected (NotDetected); Influenza AH1, PCR Not Detected (NotDetected); Influenza AH3,PCR Not Detected (NotDetected); Influenza B, PCR Not Detected (NotDetected); Parainfluenza 1, PCR Not Detected (NotDetected); Parainfluenza 2, PCR Not Detected (NotDetected); Parainfluenza 3, PCR Not Detected (NotDetected); Parainfluenza 4, PCR Not Detected (NotDetected); Respiratory Syncytial Virus Not Detected (NotDetected); Rhinovirus/Enterovirus Not Detected (NotDetected)
== END 2023-07-04 23:59 ==
LOC: LAB.DROPOF 19:28
PROVIDERS: PCP Nurse Practitioner; Visit Provider Nurse Practitioner
DX: J06.9 Acute upper respiratory infection, unspecified (principal); R09.81 Nasal congestion; J02.9 Acute pharyngitis, unspecified; R05.9 Cough, unspecified; R09.89 Other specified symptoms and signs involving the circulatory and respiratory systems; R49.0 Dysphonia; Z86.16 Personal history of COVID-19
CPT/HCPCS: 87632; 87635

== ENCOUNTER 2023-11-14 10:19 | Outpatient (CLI) | payer MEDICARE, MEDICAID, SELFPAY ==
[2023-11-14 18:44] LABS: Alanine Aminotransferase 29 U/L (12-78); Albumin/Globulin Ratio 1.1 (1.1-1.8); Alkaline Phosphatase 121 U/L (38-126); Anion Gap 9.7 mEq/L (5-15); Aspartate Amino Transferase 41 U/L (14-36); Bilirubin,Total 0.4 mg/dl (0.2-1.3); Blood Urea Nitrogen 19 mg/dl (7-17); Calcium 8.4 mg/dl (8.4-10.2); Carbon Dioxide 26 mmol/L (22.0-30.0); Chloride 106 mmol/L (98-107); Chol/HDL Ratio 2.4 (1-3.5); Cholesterol 99 mg/dl (140-200); Estimated Glomerular Filt Rate 55 ml/min (>60); GFR (African American) 67 ML/MIN (>60); Globulin 2.7 g/dL (1.3-3.2); Glucose 105 mg/dl (74-100); HDL Cholesterol 41 mg/dl (40-60); Potassium 4.7 mmoL/L (3.5-5.1); Sodium 137 mmol/L (136-145); Total Protein,Serum 5.7 g/dl (6.3-8.2); Triglycerides 58 mg/dl (30-150); VLDL Cholesterol 12 mg/dL (0-40)
[2023-11-14 20:55] LABS: Vitamin B12 > 1000 pg/mL (239-931)
== END 2023-11-14 23:59 | disposition home or self-care (01) ==
LOC: LAB.DROPOF 11-15 10:19
PROVIDERS: PCP Nurse Practitioner; Visit Provider Nurse Practitioner
DX: E11.9 Type 2 diabetes mellitus without complications (principal); E53.8 Deficiency of other specified B group vitamins; E78.2 Mixed hyperlipidemia; I25.10 Atherosclerotic heart disease of native coronary artery without angina pectoris
CPT/HCPCS: 80053; 80061; 82607; 83036

== ENCOUNTER 2024-03-02 10:13 | Outpatient (CLI) | payer MEDICARE, MEDICAID, SELFPAY ==
--- NOTE | 2024-03-02 10:15 | CA_ITS ---
APPROVED REPORT EXAM: Comprehensive 2D, Doppler, and color-flow Echocardiogram Mailroom Supervisor: Demetra Hdz RVT Ht: 5 ft 4 in Wt: 206lbs BSA: 1.98 BP: 127/60 mmHg Indications: abn ekg,cabg,cad,htn,hld,dm,hx gastric bypass 2D Dimensions IVSd 0.76 cm F: 0.6-1.0 LVEF (Visual) 51.70 % PWd 0.73 cm F: 0.6 - 1.0 LA Volume 49.00 mL LVDd 3.99 cm F: 3.9 - 5.3 LA Volume Index 24.75 mL/m2 (M/F) 16-34 LVDs 2.95 cm F: 2.2 - 3.5 M-Mode Dimensions LA Diam 3.97 cm (1.9-4.0) TAPSE 2.20 (<1.7) LV Diastology E Decel Time 150 (160-240 msec) E/A Ratio 0.7 Aortic Valve ANGELICA Index 1.37 cm2/m2 AoV Peak Momo. 109.0 (50-130 cm/s) AO Peak GR. 4.70 mmHg AO Mean GR. 3.30 (<5 mmHg) AO VTI 27.5 (18-25 cm) ANGELICA (VTI) 2.78 (2.5-4.5 cm2) Mitral Valve MV E Max Momo. 53.0 (40-130 cm/s) MV A Velocity 72.0 (40-130 cm/s) E/A Ratio 0.74 MV PHT 44.0 ms Pulmonary Valve PV Peak Velocity 72.0 (50-150 cm/s) Left Ventricle The left ventricle is normal size. The left ventricular systolic function is normal. The left ventricular ejection fraction is within the normal range. There is increased LV wall thickness. There is normal LV segmental wall motion. The left ventricular diastolic function is normal. LVEF is 55%. Right Ventricle Right ventricle is mildly dilated. Right ventricle is borderline hypokinetic. Atria The left atrium size is normal. The right atrium size is normal. There is no Doppler evidence of interatrial shunt. Aortic Valve The aortic valve is mildly thickened. There is no aortic valvular stenosis. No aortic regurgitation is present. Mitral Valve The mitral valve is normal in structure. No evidence of mitral valve stenosis. Trace mitral regurgitation. Tricuspid Valve The tricuspid valve leaflets are thin and pliable. Trace tricuspid regurgitation. There is insufficient TR jet to estimate RVSP. Pulmonic Valve The pulmonary valve is normal in structure. Trace pulmonic regurgitation. Great Vessels The aortic root is normal in size. IVC is normal in size and collapses >50% with inspiration. Pericardium There is no pericardial effusion. Other Information Study Quality: Fair Conclusion Normal biventricular systolic function. Mild RV dilation with borderline reduction in RV function. No significant valvular stenosis or regurgitation. Electronically signed by : Katiuska Franco MD 03/12/2024 12:17:52
== END 2024-03-02 23:59 | disposition home or self-care (01) ==
LOC: RT 10:14
PROVIDERS: PCP Nurse Practitioner; Visit Provider Nurse Practitioner
DX: I51.89 Other ill-defined heart diseases (principal); R06.00 Dyspnea, unspecified
CPT/HCPCS: 93306

== ENCOUNTER 2024-03-19 08:45 | Outpatient (CLI) | payer MEDICARE, MEDICAID, SELFPAY ==
[2024-03-19 17:58] LABS: Coronavirus 19, PCR Not Detected (NotDetected); Influenza A, PCR Not Detected (NotDetected); Influenza B, PCR Not Detected (NotDetected)
[2024-03-19 19:09] LABS: Alanine Aminotransferase 24 U/L (12-78); Albumin Level 3.4 g/dl (3.5-5.0); Albumin/Globulin Ratio 1.4 (1.1-1.8); Alkaline Phosphatase 137 U/L (38-126); Anion Gap 8.1 mEq/L (5-15); Aspartate Amino Transferase 28 U/L (14-36); Bilirubin,Total 0.3 mg/dl (0.2-1.3); Blood Urea Nitrogen 15 mg/dl (7-17); Calcium 8.8 mg/dl (8.4-10.2); Carbon Dioxide 28 mmol/L (22.0-30.0); Chloride 108 mmol/L (98-107); Chol/HDL Ratio 2.2 (1-3.5); Cholesterol 96 mg/dl (140-200); Estimated Glomerular Filt Rate 55 ml/min (>60); GFR (African American) 67 ML/MIN (>60); Globulin 2.4 g/dL (1.3-3.2); Glucose 113 mg/dl (74-100); HDL Cholesterol 43 mg/dl (40-60); Potassium 5.1 mmoL/L (3.5-5.1); Sodium 139 mmol/L (136-145); Total Protein,Serum 5.8 g/dl (6.3-8.2); Triglycerides 67 mg/dl (30-150); VLDL Cholesterol 13 mg/dL (0-40)
[2024-03-19 19:20] LABS: Direct LDL Cholesterol 43.37 mg/dL (100-129)
[2024-03-19 20:31] LABS: Vitamin B12 > 1000 pg/mL (239-931)
[2024-03-19 22:50] LABS: Hemoglobin A1C 5.9 % (4.0-6.0)
== END 2024-03-19 23:59 | disposition home or self-care (01) ==
LOC: LAB.DROPOF 03-20 15:26
PROVIDERS: PCP Nurse Practitioner; Visit Provider Nurse Practitioner
DX: J06.9 Acute upper respiratory infection, unspecified (principal); E11.9 Type 2 diabetes mellitus without complications; E53.8 Deficiency of other specified B group vitamins; I10 Essential (primary) hypertension; E78.2 Mixed hyperlipidemia; E78.5 Hyperlipidemia, unspecified
CPT/HCPCS: 80053; 80061; 82607; 83036; 87636

== ENCOUNTER 2024-04-24 10:30 | Outpatient (CLI) | payer MEDICARE, MEDICAID, SELFPAY ==
[2024-04-24 18:31] LABS: Basophils # 0.1 K/mm3 (0-0.2); Eosinophils # 0.1 K/mm3 (0.0-0.4); Eosinophils % 1.6 % (0.1-12.0); Hematocrit 41.5 % (37.0-47.0); Hemoglobin 12.9 g/dL (12.2-16.2); Lymphocytes % 29.4 % (10-50); Mean Corpuscular HGB Conc 31.1 g/dL (31.8-35.4); Mean Corpuscular Hemoglobin 29.4 pg (27.0-31.2); Mean Corpuscular Volume 94.5 fl (81-99); Mean Platelet Volume 10.4 fl (7.4-10.4); Monocytes # 0.6 K/mm3 (0.1-1.0); Monocytes % 8.1 % (1.7-9.3); Neutrophils % 59.5 % (37.0-80.0); Platelet Count 447 K/mm3 (142-424); Red Blood Count 4.39 M/mm3 (4.20-5.40); Red Cell Distribution Width 12.8 % (11.5-17.5); White Blood Count 6.8 K/mm3 (4.8-10.8)
[2024-04-24 18:45] LABS: Hemoglobin A1C 5.9 % (4.0-6.0)
[2024-04-24 18:59] LABS: Microalbumin/Creatinine Ratio 4.2
[2024-04-24 19:06] LABS: Alanine Aminotransferase 29 U/L (12-78); Albumin Level 3.6 g/dl (3.5-5.0); Albumin/Globulin Ratio 1.4 (1.1-1.8); Alkaline Phosphatase 147 U/L (38-126); Anion Gap 13.5 mEq/L (5-15); Aspartate Amino Transferase 29 U/L (14-36); Bilirubin,Total 0.3 mg/dl (0.2-1.3); Blood Urea Nitrogen 17 mg/dl (7-17); Calcium 9.1 mg/dl (8.4-10.2); Carbon Dioxide 28 mmol/L (22.0-30.0); Chloride 104 mmol/L (98-107); Chol/HDL Ratio 2.7 (1-3.5); Cholesterol 112 mg/dl (140-200); Estimated Glomerular Filt Rate 62 ml/min (>60); GFR (African American) 76 ML/MIN (>60); Globulin 2.6 g/dL (1.3-3.2); Glucose 101 mg/dl (74-100); HDL Cholesterol 42 mg/dl (40-60); Potassium 5.5 mmoL/L (3.5-5.1); Sodium 140 mmol/L (136-145); Total Protein,Serum 6.2 g/dl (6.3-8.2); Triglycerides 92 mg/dl (30-150); VLDL Cholesterol 18 mg/dL (0-40)
[2024-04-24 19:19] LABS: Direct LDL Cholesterol 55.52 mg/dL (100-129)
[2024-04-24 19:22] LABS: Creatinine,Urine Random 150 mg/dL (Not Estab.)
[2024-04-24 19:32] LABS: Thyroid Stimulating Hormone 0.98 uIU/mL (0.465-4.68)
[2024-04-24 19:40] LABS: 25-OH Vitamin D, Total 28.2 ng/mL (30-100)
[2024-04-24 19:54] LABS: Vitamin B12 > 1000 pg/mL (239-931)
== END 2024-04-24 23:59 | disposition home or self-care (01) ==
LOC: LAB.DROPOF 04-25 13:33
PROVIDERS: PCP Nurse Practitioner; Visit Provider Nurse Practitioner
DX: E11.9 Type 2 diabetes mellitus without complications (principal); I10 Essential (primary) hypertension; E66.9 Obesity, unspecified; E53.8 Deficiency of other specified B group vitamins; E55.9 Vitamin D deficiency, unspecified
CPT/HCPCS: 80053; 80061; 82043; 82306; 82570; 82607; 83036; 84443; 85025

== ENCOUNTER 2024-06-20 11:46 | Outpatient (CLI) | payer MEDICARE, MEDICAID, SELFPAY ==
[2024-06-20 19:30] LABS: Hemoglobin A1C 5.9 % (4.0-6.0)
[2024-06-20 20:24] LABS: Alanine Aminotransferase 22 U/L (12-78); Albumin Level 3.3 g/dl (3.5-5.0); Albumin/Globulin Ratio 1.4 (1.1-1.8); Alkaline Phosphatase 103 U/L (38-126); Anion Gap 8.2 mEq/L (5-15); Aspartate Amino Transferase 23 U/L (14-36); Bilirubin,Total 0.3 mg/dl (0.2-1.3); Blood Urea Nitrogen 10 mg/dl (7-17); Calcium 8.9 mg/dl (8.4-10.2); Carbon Dioxide 26 mmol/L (22.0-30.0); Chloride 110 mmol/L (98-107); Estimated Glomerular Filt Rate 62 ml/min (>60); GFR (African American) 76 ML/MIN (>60); Globulin 2.4 g/dL (1.3-3.2); Glucose 98 mg/dl (74-100); Potassium 4.2 mmoL/L (3.5-5.1); Sodium 140 mmol/L (136-145); Total Protein,Serum 5.7 g/dl (6.3-8.2)
== END 2024-06-20 23:59 | disposition home or self-care (01) ==
LOC: LAB.DROPOF 06-21 11:46
PROVIDERS: PCP Nurse Practitioner; Visit Provider Nurse Practitioner
DX: E11.9 Type 2 diabetes mellitus without complications (principal); Z79.85 Long-term (current) use of injectable non-insulin antidiabetic drugs
CPT/HCPCS: 80053; 83036

== ENCOUNTER 2024-07-25 11:18 | Outpatient (CLI) | payer MEDICARE, MEDICAID, SELFPAY ==
[2024-07-25 19:06] LABS: Hemoglobin A1C 6.1 % (4.0-6.0)
[2024-07-25 19:32] LABS: 25-OH Vitamin D, Total 32.8 ng/mL (30-100)
[2024-07-25 20:03] LABS: Chloride 105 mmol/L (98-107); Potassium 5.7 mmoL/L (3.5-5.1); Sodium 139 mmol/L (136-145)
[2024-07-25 20:06] LABS: Blood Urea Nitrogen 13 mg/dl (7-17); Estimated Glomerular Filt Rate 55 ml/min (>60); GFR (African American) 67 ML/MIN (>60)
[2024-07-25 20:07] LABS: Anion Gap 13.7 mEq/L (5-15); Calcium 8.8 mg/dl (8.4-10.2); Carbon Dioxide 26 mmol/L (22.0-30.0); Glucose 99 mg/dl (74-100)
== END 2024-07-25 23:59 | disposition home or self-care (01) ==
LOC: LAB.DROPOF 07-26 10:58
PROVIDERS: PCP Nurse Practitioner; Visit Provider Nurse Practitioner
DX: E11.9 Type 2 diabetes mellitus without complications (principal); I10 Essential (primary) hypertension; E55.9 Vitamin D deficiency, unspecified
CPT/HCPCS: 80048; 82306; 83036

== ENCOUNTER 2024-08-15 12:04 | Outpatient (CLI) | payer MEDICARE, MEDICAID, SELFPAY ==
--- NOTE | 2024-08-15 12:10 | XR_ITS ---
FINAL REPORT CLINICAL HISTORY: bilateral knee pain FINDINGS: Two views of the right knee were obtained. There is no prior exam for comparison. There is no acute fracture or dislocation. Degenerative joint disease is noted. There is a suprapatellar loose body and a small joint effusion. There is no acute soft tissue abnormality. IMPRESSION: Degenerative change without acute abnormality identified. Suprapatellar loose body. Reviewed, Interpreted and Dictated by Amarilis Lo MD Transcribed by Celia Perera Authenticated and [facility]
--- NOTE | 2024-08-15 12:10 | XR_ITS ---
FINAL REPORT CLINICAL HISTORY: bilateral knee pain FINDINGS: Two views of the left knee were obtained. There is no prior exam for comparison. There is no acute fracture or dislocation. Degenerative joint disease is noted. There is a suprapatellar loose body. No significant joint effusion. There is no acute soft tissue abnormality. IMPRESSION: Degenerative change without acute abnormality identified. Suprapatellar loose body. Reviewed, Interpreted and Dictated by Amarilis Lo MD Transcribed by Celia Perera Authenticated and [facility]
[2024-08-15 19:09] LABS: Anion Gap 6.9 mEq/L (5-15); Blood Urea Nitrogen 16 mg/dl (7-17); Calcium 8.8 mg/dl (8.4-10.2); Carbon Dioxide 28 mmol/L (22.0-30.0); Chloride 107 mmol/L (98-107); Estimated Glomerular Filt Rate 62 ml/min (>60); GFR (African American) 76 ML/MIN (>60); Glucose 96 mg/dl (74-100); Potassium 4.9 mmoL/L (3.5-5.1); Sodium 137 mmol/L (136-145)
== END 2024-08-15 23:59 | disposition home or self-care (01) ==
LOC: RAD 12:05
PROVIDERS: PCP Nurse Practitioner; Visit Provider Nurse Practitioner
DX: M25.561 Pain in right knee (principal); M25.562 Pain in left knee
CPT/HCPCS: 73560; 80048

== ENCOUNTER 2024-11-16 17:04 | Outpatient (CLI) | payer MEDICARE, MEDICAID, SELFPAY ==
--- OUTSIDE RECORDS SUMMARY | 2021-03-30 07:20 | XMS_ITS | Continuity of Care Document ---
Author Organization [facility] o Address [address] [place] [address] Phone Care Team Providers Care National Sales Director Name Role Phone Tom ROSS, Jude Unavailable Unavailabl e Allergies, Adverse Reactions, Alerts Substance Reaction Status Criticality Penicillins Rash Active No Information Procedures Procedure Date Office/outpatient visit,[facility] 2020 X-ray exam lwr spine, min 4 views Advance Directives Directive Yes / No Effective Date File Name No Information Encounters Encounter Description Practice Location Reason(s) For Visit Diagnoses Date Provider Providers Copied on Encounter Office/outpa tient visit,[facility], [address] [place] [place], [place], [facility], tel:[phone] Intervertebral disc disorders w radiculopathy, lumbar region Tom Roque. [address] [place], [place], [facility], . tel:[phone] Specialist : Chandu Mercado MD, [address] [place] [address], [id number] . tel:[phone] erring Provider: Chandu Mercado MD, [address] [place] [address], [id number] . tel:[phone] Family History Family Member Type Diagnosis Age At Onset Mother Problem (finding) Osteoporosis Mother Problem (finding) Hypertension Payers Payer name Insurance type Covered alliance party ID Authoriza tion(s) [place] - [id number] Social History Type Description Quantity Date Captured Comments Alcohol Use Details Caffeine Use Details Tobacco Use Status No Information Smoking Status Never smoker Sex Female Chief Complaint And Reason For Visit No Information Reason For Referral Reason For Referral No Information History Of Present Illness Encounter Date Complaint History Of Prese nt Illness back pain Functional Status Date Functional Assessmen t No Information Instructions Date Instruction Additional Infor mation No Information Assessments Type Assessment Date No Information Patient Care Teams Name Effective Dates (start - stop) Status Members No Information
--- OUTSIDE RECORDS SUMMARY | 2024-11-16 17:06 | XMS_ITS | Clinical Summary ---
Author Organization [facility] Address [address] [place] [id number] Care Team Providers Care Director Process Improvement Name Role Phone Serjio Vera M.D. Primary Care Provider [phone] Source Comments [facility] is fully rolled out with thefollowing exceptions:General Clinical Research [facility] Allergies No known active allergies Medications diclofenac sodium (VOLTAREN) 75 MG delayed release tablet Active metoprolol (TOPROL XL) 25 MG extended release tablet Activ e metFORMIN (FORTAMET) 500 MG tablet extended release 24 hour Acti ve potassium chloride (KLOR-CON M10) 10 MEQ extended release tablet Activ e furosemide (LASIX) 20 MG tablet Active losartan-hydroCHLO ROthiazide (HYZAAR) 50-12.5 MG tablet Active cetirizine (ZyrTEC) 10 MG tablet Active Social History Tobacco Use Types Packs/Day Years Used Date Smoking Tobacco: Never Assessed Comments Unknown Sex and Gender Information Value Date Recorded Sex Assigned at Not on file Legal Sex Female 3:07 PM EST Gender Identity Not on file Sexual Orientation Not on file Last Filed Vital Signs Vital Sign Reading Time Taken Comments Blood Pressure 151/75 05/19/2018 3:16 PM EST Pulse 80 05/19/2018 4:25 PM EST Temperature 36.4 C (97.5 F) 05/19/2018 4:25 PM EST Respiratory Rate 18 05/19/2018 4:25 PM EST Oxygen Saturation - - Inhaled Oxygen Concentration - - Weight 114 kg (251 lb 5.2 oz) 9 3:15 PM EST per patient Height - - Body Mass Index - - Plan of Treatment Health Maintenance Due Date Last Done Comments MMR IMMUNIZATION (1 of 1 - S tandard series) 1956 DTAP/Tdap/Td IMMUNIZATION (1 - Tdap) 02/17/1964 VARICELLA IMMUNIZATION (1 of 2 - 13+ 2-dose series) 1970 COVID-19 Vaccine ( - 2023-2 5 season) 2023 AMB SEASONAL FLU VACCINE (#1) 12/10/2024 Respiratory Syncytial Virus (RSV) >60yo or (1 - 1-dose 75+ series) 02/17/2032 HEPATITIS B IMMUNIZATION Aged Out No longer eligible based on patient's age to complete this topic HIB IMMUNIZATION Aged Out No longer e ligible based on patient's age to complete this topic HPV IMMUNIZATION Aged Out No longer e ligible based on patient's age to complete this topic IPV IMMUNIZATION Aged Out No longer e ligible based on patient's age to complete this topic MCV4 IMMUNIZATION Aged Out No longer eligible based on patient's age to complete this topic MENINGOCOCCAL B VACCINE Aged Out No l onger eligible based on patient's age to complete this topic Respiratory Syncytial Virus (RSV) <20mo Aged Out No longer eligible b ased on patient's age to complete this topic Insurance /[employer] Care Teams Director Process Improvement Relationship Specialty Start Date End Date Serjio Vera M.D. [address] [place], [place] [id number] PCP - General External Family Practice 05/19/18
--- OUTSIDE RECORDS SUMMARY | 2024-11-16 17:07 | XMS_ITS | Clinical Summary ---
Author Organization [facility] Address [address] [facility] [place] [address] Phone Care Team Providers Care Dietitian Teacher Name Role Phone Serjio Vera MD Primary Care Provider [phone] Allergies Active Allergy Reactions Criticality Noted Date Comments Sulfa (Sulfonamide Antibiotics) 08/2012 Medications ibuprofen (ADVIL;MOTRIN) 800 mg Take 800 mg by mouth 2 times daily. Active metFORMIN (GLUCOPHAGE) 500 mg tablet Take 1,000 mg by mouth 2 times daily. Active cetirizine (ZYRTEC) 10 mg Oral Tablet Take 10 mg by mouth daily. 5 04/24/2018 Active losartan-hydroc hlorothiazide (HYZAAR) 50-12.5 mg Oral Tablet Take 1 Tab by mouth daily. 1 04/03/2018 Active metoprolol (LOPRESSOR) 25 mg Oral Tablet Take 25 mg by mouth 2 times daily. 1 04/03/2018 Active citalopram (CELEXA) 20 mg Oral Tablet Take 20 mg by mouth daily. 1 05/02/2018 Active cyanocobalamin 1,000 mcg Oral Tablet Take 1,000 mcg by mouth daily. 2 04/24/2018 Active TRULICITY 0.75 mg/0.5 mL SubQ Pen Injector USE DIRECTED ONCE WEEKLY. 12 04/28/2018 Active diclofenac (VOLTAREN) 75 mg Oral Tablet, Delayed Release (E.C.) Take by mouth 2 times daily. Active HYDROcodone-nathaniel taminophen (NORCO) 5-325 mg Oral Tablet Take 1 Tab by mouth every 4 hours as needed for Acute Pain (R52) for up to 18 doses. 18 Tab 05/19/2018 Active potassium chloride SA (K-DUR;KLOR-CON ) 10 mEq Oral Tab Sust.Rel. Particle/Kathe l 10 mEq daily. Active Active Problems Problem Noted Date Diagnosed Date Angina pectoris 03/15/2013 Abnormal nuclear stress test 03/15/2013 Diabetes mellitus 03/15/2013 HBP (high blood pressure) 03/15/2013 Surgical History Surgery Date Site/Laterality Comments EYE SURGERY Bilateral cataracts TUBAL LIGATION HERNIA REPAIR WRIST FRACTURE SURGERY 05/30/2018 Left LEFT DISTAL RADIUS OPEN REDUCTION INTERNAL FIXATION ; Surgeon: Valdemar Casas MD; Location: [facility]; Service: Hand Medical devices from this surgery are in the Medical Devices section. Medical History Medical History Date Comments Hypertension Arthritis hands, knees Diabetes mellitus (HCC) Shortness of breath exercise ind uced Family History Medical History Relation Name Comments High Blood Pressure Father Cancer Mother High Blood Pressure Sister Relation Name Status Comments Father Mother Sister Social History Tobacco Use Types Packs/Day Years Used Date Smoking Tobacco: Former Cigarettes Q uit: 05/25/2001 Smokeless Tobacco: Never Alcohol Use Standard Drinks/Week Comments No 0 (1 standard drink = 0.6 oz pur e alcohol) Comments No Sex and Gender Information Value Date Recorded Sex Assigned at Not on file Legal Sex Female 5:20 AM EDT Gender Identity Not on file Sexual Orientation Not on file Obstetrics History Para Term AB IAB SAB Ectopic Multiple Livin g Live Births 3 3 2 Date Outcome GA Total Labor Labor/2nd/3rd Weight Sex Type Anes PTL Coleen A1 A5 Name Clin Para Para Para Last Filed Vital Signs Vital Sign Reading Time Taken Comments Blood Pressure 165/75 05/30/2018 12:00 PM EST Pulse 100 05/30/2018 12:00 PM EST Temperature 36.6 C (97.8 F) 05/30/2018 11:11 AM EST Respiratory Rate 16 05/30/2018 12:00 PM EST Oxygen Saturation 95% 05/30/2018 12:00 PM EST Inhaled Oxygen Concentration - - Weight 116.7 kg (257 lb 4 oz) 05/30/2018 7:41 AM EST Height 162.6 cm (5' 4 ) 05/30/2018 7:41 AM EST Body Mass Index 44.16 05/30/2018 7:41 AM EST Plan of Treatment Health Maintenance Due Date Last Done Comments Wellness Exam Medicare 02/17/1960 Lipids 1967 Diabetic Eye Exam 1975 Hemoglobin A1c 1975 Hepatitis C Screening 1975 Kidney Health: uACR 1975 Cologuard 2002 Colon Cancer Screening 2002 Colonoscopy 2002 FIT 2002 Sigmoidoscopy 2002 Virtual Colonography 2002 Kidney Health: eGFR 03/16/2014 03/16/2013 DTaP/TDaP/Td (2 - Td or Tdap) 06/19/2021 06/20/2011 Bone Density Screening 2022 Zoster (2 of 2) 02/19/2022 12/25/2021 COVID-19 Vaccine ( season) 2023 01/27/2023, 04/13/2021, 08/11/2020, Additional history exists Influenza Vaccine (#1) 2024 , 01/27/2023, 12/25/2021, Additional history exists Breast Cancer Screening 07/31/2026 08/01/19, 07/07/2013, 07/10/2011, Additional history exists Pneumococcal Vaccine 50+ Completed 09/11/2021 Hepatitis B Vaccine Aged Out No longe r eligible based on patient's age to complete this topic Meningococcal B Vaccine Aged Out No l onger eligible based on patient's age to complete this topic Medical Devices Implanted Type Area Wirer Passenger Car Device Identifier Shelf Expiration Date Model / Serial / Lot Bone Cancellous Crush 5cc Fd Asp - [id number] Implanted:Qty: 1 on 05/30/2018 by Valdemar Casas MD at [facility] Left: Wrist BIOMET 12/07/2022 1612 / [id number] / Screw Cortical Non-Locking 3.5mm X 12mm - [id number] Implanted:Qty: 1 on 05/30/2018 by Valdemar Casas MD at [facility] Left: Wrist [employer] [id number] -[id number] / / Peg Smooth Locking Radius 2.0mm X 17mm - [id number] Implanted:Qty: 2 on 05/30/2018 by Valdemar Casas MD at [facility] Left: Wrist [employer] [id number] -TS / / Screw Cortical Non-Locking 3.5mm X 10mm - [id number] Implanted:Qty: 2 on 05/30/2018 by Valdemar Casas MD at [facility] Left: Wrist [employer] [id number] -TS / / Plate Volar Distal Radius Narrow 4 Hole Left - [id number] Implanted:Qty: 1 on 05/30/2018 by Valdemar Casas MD at [facility] Left: Wrist SKELET[employer] [id number] / / Peg Smooth Locking Radius 2.0mm X 18mm - [id number] Implanted:Qty: 1 on 05/30/2018 by Valdemar Casas MD at [facility] Left: Wrist [employer] [id number] -TS / / Peg Smooth Locking Radius 2.0mm X 19mm - [id number] Implanted:Qty: 1 on 05/30/2018 by Valdemar Casas MD at [facility] Left: Wrist [employer] [id number] -TS / / Peg Smooth Locking Radius 2.0mm X 20mm - [id number] Implanted:Qty: 1 on 05/30/2018 by Valdemar Casas MD at [facility] Left: Wrist [employer] [id number] -TS / / Screw Polyaxial Locking Cannualted Cocr 2.5mm X 16mm - [id number] Implanted:Qty: 1 on 05/30/2018 by Valdemar Casas MD at [facility] Left: Wrist [employer] [id number] -[id number] / / Screw Cortical Locking 3.5mm X 12mm - [id number] Implanted:Qty: 1 on 05/30/2018 by Valdemar Casas MD at [facility] Left: Wrist S[employer] [id number] -TS / / Procedures Procedure Name Priority Date/Time Associated Diagnosis Comments MM MAMMO DIGITAL NONA SCREEN BILAT Routine 07/31/2024 11:07 AM EDT Encounter for screening mammogram for malignant neoplasm of breast BASIC METABOLIC PANEL Routine 03/16/2013 11:07 AM EST Abnormal stress test Angina pectoris (HCC) Abnormal nuclear stress test from Last 3 Months or Most Recently Relevant to Health Maintenance Results * MM MAMMO DIGITAL NONA SCREEN BILAT (07/31/2024 11:07 AM EDT) Anatomical Region Laterality Modality Breast Bilateral Mammography 07/31/2024 11:0 7 AM EDT Impressions 08/01/2024 8:55 AM EDT Negative ([id number]) RECOMMENDATION: Routine Screening Mammogram in 1 Year Bilateral . . COMMENTS: DISCLAIMER *The patient was notified by MyChart or mail of the results for this examination. *The patient's information was entered into a reminder system with a target due date for the next breast imaging, in accordance with the [employer] and the Society of Breast Imaging recommendations. *Breast Imaging has a false negative rate of 15%. *Any patient with a palpable abnormality, unexplained by breast imaging, should be managed on a clinical basis by the attending physician. Narrative 08/01/2024 8:55 AM EDT EXAM: MM MAMMO DIGITAL NONA SCREEN BILAT EXAM DATE: 07/31/2024 11:07 AM INDICATION: Z12.31-Encounter for screening mammogram for malignant neoplasm of [id number] COMPARISON STUDIES: Compared with prior studies the most recent being 07/07/2013 TISSUE DENSITY: There are scattered areas of fibroglandular density. FINDINGS: No mammographic evidence of malignancy. Procedure Note Taurus Oneil MD - 08/01/2024 EXAM: MM MAMMO DIGITAL NONA SCREEN BILAT EXAM DATE: 07/31/2024 11:07 AM INDICATION: Z12.31-Encounter for screening mammogram for malignantneoplasm of [id number] COMPARISON STUDIES: Compared with prior studies the most recent being 07/07/2013 TISSUE DENSITY: There are scattered areas of fibroglandular density. FINDINGS: No mammographic evidence of malignancy. IMPRESSION: Negative ([id number]) RECOMMENDATION: Routine Screening Mammogram in 1 Year Bilateral . . COMMENTS: DISCLAIMER *The patient was notified by MyChart or mail of the results for this examination. *The patient's information was entered into a reminder system with atarget due date for the next breast imaging, in accordance with the [employer] and the Society of Breast Imaging recommendations. *Breast Imaging has a false negative rate of 15%. *Any patient with a palpable abnormality, unexplained by breast imaging,should be managed on a clinical basis by the attending physician. Twyla Rolon CUSTOMER SUPPLY COORDINATOR IM MAMMOGRAPHY ORDERABLES [facility] Result * (ABNORMAL) BASIC METABOLIC PANEL (03/16/2013 11:07 AM EST) Sodium 139 135 - 143 mmol/L [facility] Potassium 4.3 3.5 - 5.0 mmol/L [facility] Chloride 95(L) 98 - 108 mmol/L [facility] Total CO2 33(H) 22 - 31 mmol/L [facility] Anion Gap 11 7 - 16 mmol/L [facility] Calcium 9.5 8.6 - 10.3 mg/dL [facility] Glucose Lvl 136(H) 70 - 100 mg/dL [facility] BUN 13 7 - 19 mg/dL [facility] Creatinine 0.7 0.6 - 1.0 mg/dL [facility] GFR Afr Am >60 [facility] Comment: GFR is estimated using creatinine, age, gender, and race. GFR has been validated for patients between 18 and 70 years of age. GFR has not been validated for women, patients with serious comorbid conditions, or persons with extremes of body size, muscle mass, or nutritional status. For additional information: www.kidney.org. Chronic kidney disease stage GFR (ml/min/1.73 square meters) Stage 3 30 - 59 Stage 4 15 - 29 Stage 5 14 or less GFR Non Afr Am >60 [facility] Blood specimen (specimen) UPPER LIMB STRUCTURE / Unknown 03/16/2013 11:07 AM EST 03/16/2013 4:39 PM EST us Torey Aceves MD CHEMISTRY ORDERABLES Final R esult [facility] [address] [place] [id number] from Last 3 Months or Most Recently Relevant to Health Maintenance Insurance MEDICAID [place] [employer] MEDICARE HMO Care Teams Dietitian Teacher Relationship Specialty Start Date End Date Serjio Vera MD [address] [place] [id number] PCP - General Family Medicine 06/30/11
[2024-11-16 18:37] LABS: Alanine Aminotransferase 22 U/L (12-78); Albumin Level 3.4 g/dl (3.5-5.0); Albumin/Globulin Ratio 1.5 (1.1-1.8); Alkaline Phosphatase 121 U/L (38-126); Anion Gap 10.0 mEq/L (5-15); Aspartate Amino Transferase 26 U/L (14-36); Bilirubin,Total 0.2 mg/dl (0.2-1.3); Blood Urea Nitrogen 16 mg/dl (7-17); Calcium 9.0 mg/dl (8.4-10.2); Carbon Dioxide 28 mmol/L (22.0-30.0); Chloride 104 mmol/L (98-107); Cholesterol 103 mg/dl (140-200); Creatinine,Serum 0.90 mg/dl (0.52-1.04); Estimated Glomerular Filt Rate 62 ml/min (>60); GFR (African American) 76 ML/MIN (>60); Globulin 2.2 g/dL (1.3-3.2); Glucose 111 mg/dl (74-100); HDL Cholesterol 44 mg/dl (40-60); Potassium 5.0 mmoL/L (3.5-5.1); Sodium 137 mmol/L (136-145); Total Protein,Serum 5.6 g/dl (6.3-8.2); Triglycerides 86 mg/dl (30-150)
[2024-11-16 23:52] LABS: Hemoglobin A1C 6.2 % (4.0-6.0)
[2024-11-17 08:12] LABS: Hepatitis C Ab Qual. W/ RFX NEGATIVE (Negative)
== END 2024-11-16 23:59 | disposition home or self-care (01) ==
LOC: LAB 17:05
PROVIDERS: PCP Nurse Practitioner; Visit Provider Nurse Practitioner
DX: E11.9 Type 2 diabetes mellitus without complications (principal); E78.2 Mixed hyperlipidemia; Z11.59 Encounter for screening for other viral diseases
CPT/HCPCS: 80053; 80061; 83036; 86803; 87389